=== PATIENT | female | born 1950 | race Caucasian/White ===

== ENCOUNTER → 2017-01-08 | Outpatient (CLI) | payer MEDICARE | LOC: MAMO 11:19 | DX: Z12.31 Encounter for screening mammogram for malignant neoplasm of breast (principal) | CPT/HCPCS: G0202 ==

== ENCOUNTER → 2020-09-03 | Outpatient (CLI) | payer MEDICARE ==
[~2020-09-03] MED LIST: IBUPROFEN800 MG PO
== END ==
LOC: KOH-I 10:55
DX: M25.511 Pain in right shoulder (principal); M54.5 Low back pain; M19.011 Primary osteoarthritis, right shoulder; M47.816 Spondylosis without myelopathy or radiculopathy, lumbar region; M48.061 Spinal stenosis, lumbar region without neurogenic claudication; M16.0 Bilateral primary osteoarthritis of hip
CPT/HCPCS: 72100; 73030; 73522

== ENCOUNTER 2021-01-20 17:11 | Emergency (ER) | payer MEDICARE ==
[2021-01-20] MEDS ORDERED: IBUPROFEN800 MG PO (19:31)
== END 2021-01-20 19:40 | disposition home or self-care (01) ==
LOC: ER1 17:11
DX: S86.912A Strain of unspecified muscle(s) and tendon(s) at lower leg level, left leg, initial encounter (principal); W19.XXXA Unspecified fall, initial encounter; Y92.009 Unspecified place in unspecified non-institutional (private) residence as the place of occurrence of the external cause; Z88.1 Allergy status to other antibiotic agents; Z88.6 Allergy status to analgesic agent
CPT/HCPCS: 73562; 99283

== ENCOUNTER 2021-04-21 09:55 | Emergency (ER) | payer MEDICARE ==
[~2021-04-21] VITALS: Ht 170.2 cm; Wt 80.3 kg
== END 2021-04-21 12:55 | disposition home or self-care (01) ==
LOC: ER1 09:55
DX: Z23 Encounter for immunization (principal); U07.1 COVID-19; Z90.710 Acquired absence of both cervix and uterus; Z79.899 Other long term (current) drug therapy; Z88.8 Allergy status to other drugs, medicaments and biological substances; Z87.891 Personal history of nicotine dependence
CPT/HCPCS: 99283; M0243

== ENCOUNTER → 2021-06-01 | Outpatient (CLI) | payer MEDICARE | LOC: KOH-I 08:00 | DX: M47.816 Spondylosis without myelopathy or radiculopathy, lumbar region (principal); M51.36 Other intervertebral disc degeneration, lumbar region; M48.061 Spinal stenosis, lumbar region without neurogenic claudication | CPT/HCPCS: 72148 ==

== ENCOUNTER → 2021-11-21 | Outpatient (CLI) | payer MEDICARE | LOC: MRI 08:27 | DX: R51.9 Headache, unspecified (principal); M81.0 Age-related osteoporosis without current pathological fracture; R90.82 White matter disease, unspecified; R90.89 Other abnormal findings on diagnostic imaging of central nervous system | CPT/HCPCS: 70551; 77080 ==

== ENCOUNTER → 2022-05-03 | Outpatient (CLI) | payer MEDICARE | LOC: KOH-I 13:00 | DX: M25.512 Pain in left shoulder (principal); S46.012A Strain of muscle(s) and tendon(s) of the rotator cuff of left shoulder, initial encounter; S43.082A Other subluxation of left shoulder joint, initial encounter; M89.312 Hypertrophy of bone, left shoulder | CPT/HCPCS: 73221 ==